=== PATIENT | female | born 1990 | race Caucasian/White ===

== ENCOUNTER 2017-10-22 12:19 | Emergency (ER) | payer MEDICAID, OTHER ==
[2017-10-22 13:30] VITALS: BP 121/74
--- NOTE | 2017-10-22 14:07 | UC ---
Ear Complaint HPI - HPI Summary HPI Summary: 27-year-old female presents with a three-week history of right ear fullness. States approximately one week ago started having some sharp pain in that same year. Reports had a few day history of cold symptoms prior to onset. Denies fever, chills, ear drainage, nasal congestion, sinus pain or pressure, sore throat, chest pain, shortness of breath, or cough. - History of Current Complaint Chief Complaint: UCEar Stated Complaint: RT EAR COMP. Time Seen by Provider: 10/22/17 13:57 Hx Obtained From: Patient Hx Last Menstrual Period: August, HAD UTERINE ABLATION Onset/Duration: Gradual Onset, Lasting Weeks - 3 Severity Initially: Mild Severity Currently: Mild Pain Intensity: 0 Aggravating Factors: Nothing Alleviating Factors: Nothing Associated Signs/Symptoms: Positive: URI Symptoms. Negative: Discharge, Hearing Loss, Foreign Body Sensation, Trauma to Ear - Allergies/Home Medications Allergies/Adverse Reactions: Allergies Allergy/AdvReac Type Severity Reaction Status Date / Time No Known Allergies Allergy Verified 10/22/17 13:21 PMH/Surg Hx/FS Hx/Imm Hx - Additional Past Medical History Additional PMH: Denies significant past medical history - Surgical History Surgical History: Yes Surgery Procedure, Year, and Place: gallbladder, 03/2012. TUBAL LIGATION04/22. UTERINE ABLATION - Family History Known Family History: Positive: Hypertension - Social History Occupation: Unemployed Lives: With Family Alcohol Use: None Substance Use Type: None Smoking Status (MU): Light Every Day Tobacco Smoker Type: Cigarettes Amount Used/How Often: 4 CIGS A DAY Review of Systems Constitutional: Negative Skin: Negative Eyes: Negative ENT: Ear Ache - Right Respiratory: Negative Cardiovascular: Negative Is Patient Immunocompromised?: No All Other Systems Reviewed And Are Negative: Yes Physical Exam Triage Information Reviewed: Yes Appearance: Well-Appearing, No Pain Distress, Obese Vital Signs: Initial Vital Signs Temp 98.7 F 10/22/17 13:23 Pulse 83 10/22/17 13:23 Resp 17 10/22/17 13:23 BP 121/74 10/22/17 13:23 Pulse Ox 100 10/22/17 13:23 Vital Signs Reviewed: Yes Eyes: Positive: Conjunctiva Clear. Negative: Discharge ENT: Positive: Hearing grossly normal, TMs normal, Uvula midline. Negative: Pharyngeal erythema, Nasal congestion, Nasal drainage, Tonsillar swelling, Tonsillar exudate Neck: Positive: Supple, Nontender, No Lymphadenopathy Respiratory: Positive: Lungs clear, Normal breath sounds Cardiovascular: Positive: RRR, No Murmur Neurological: Positive: Alert Skin Exam: Normal Ear Complaint Course/Dx - Course Course Of Treatment: 27 year old female with 3 week history of rigth ear fullness and 1 week of right ear pain that was preceeded by URI symptoms. Exam unremarkable. Likely some eustachian tube dysfunction. Will treat with steroid nasal spray. Patient to follow up with PCP if symptoms persist. - Differential Dx/Diagnosis Differential Diagnosis/HQI/PQRI: Cerumen Impaction, Otitis Externa, Otitis Media Provider Diagnoses: Right eustachian tube dysfunction Discharge - Sign-Out/Discharge Documenting (check all that apply): Patient Departure All imaging exams completed and their final reports reviewed: No Studies - Discharge Plan Condition: Stable Disposition: HOME Prescriptions: Fluticasone NASAL SPRAY 50MCG* [Flonase NASAL SPRAY 50MCG*] 2 spray BOTH NARES DAILY #1 btl Patient Education Materials: Earache (ED) Referrals: No Primary Care Phys,NOPCP [Primary Care Provider] - [facility] [place] [facility]FERR[facility] [Outside] Additional Instructions: Your exam today did not show any signs of an ear infection. I suspect that her symptoms are related to eustachian tube dysfunction. Start using fluticasone nasal spray 2 sprays each nostril once daily for the next 2 weeks. Follow-up with her primary care provider if her symptoms persist. I have given you to contact number for the [facility] Referral service in case you need assistance with establishing care. Seek immediate medical attention if you develop a fever greater than 100.5 F, have worsening ear pain, have any drainage or bleeding from the ear, or any worsening of symptoms. - Billing Disposition and Condition Condition: STABLE Disposition: Home
== END 2017-10-22 14:14 | disposition home or self-care (01) ==
LOC: UCCORT 12:19
DX: H69.91 Unspecified Eustachian tube disorder, right ear (principal); F17.210 Nicotine dependence, cigarettes, uncomplicated
CPT/HCPCS: 99212; G0463

== ENCOUNTER 2018-05-10 12:50 | Emergency (ER) | payer OTHER ==
--- OUTSIDE RECORDS SUMMARY | 2018-05-10 13:01 | XMS REPORT | Continuity of Care Document ---
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 Faby Noble FNP Primary Care Physician Unavailable Payers Date Identification Numbers Payment Provider Subscriber Policy Number: [id number] Graham Lujan PayID: [id number] [facility] [place] [address] Advance Directives Description No Information Available Problems Description No Information Family History Date Family Member(s) Observation Comments Father Seasonal Allergies Father Age is Unknown Mother Diabetes Mellitus II Mother Depression Mother Mental Illness Mother Non Insulin Dependent Diabetes Mother Bipolar Disorder Mother Age is Unknown Social History Type Date Description Comments Sex Unknown Marital Status Lives With Significant Other Lives With Sons Lives With Daughter Sleep Typically sleeps 6 hours a night Sleep Reports difficulty falling asleep Sleep Reports daytime drowsiness Smoke-Free Home is not smoke-free Pets None Work Status Not Currently Working 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 Tobacco Use Start: Unknown End: Former Cigarette Smoker 5-10 Unknown Cigarettes Daily Tobacco Use Start: Unknown Never Smoked Cigars Tobacco Use Start: Unknown Never Smoked A Pipe Smokeless Tobacco Never Used Smokeless Tobacco ETOH Use Moderate Tobacco Use Start: Unknown End: Patient is a former smoker Unknown Recreational Drug Use Never Used Drugs Allergies, Adverse Reactions, Alerts Description No Known Drug Allergies Medications Description No Active Medications Immunizations Description No Information Available Vital Signs Date Vital Result Comment 04/30/2018 2:43pm Weight 270.00 lb Height 67.5 inches 5'7.50" BMI (Body Mass Index) 41.7 kg/m2 BP Systolic 128 mmHg BP Diastolic 84 mmHg Heart Rate 83 /min O2 % BldC Oximetry 98 % Body Temperature 99.3 F Pain Level 4 Results Description No Information Available Procedures Description No Information Available Encounters Description No Information Available Plan of Treatment No Information Available
[2018-05-10 13:11] VITALS: BP 127/80
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
== END 2018-05-10 15:34 | disposition home or self-care (01) ==
LOC: UCCORT 12:50
DX: M25.512 Pain in left shoulder (principal); Z87.891 Personal history of nicotine dependence
CPT/HCPCS: 99211; G0463

== ENCOUNTER 2018-10-22 20:23 | Emergency (ER) | payer OTHER ==
--- OUTSIDE RECORDS SUMMARY | 2018-10-22 20:31 | XMS REPORT | Continuity of Care Document ---
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 Faby Noble FNP Primary Care Physician Unavailable Payers Date Identification Numbers Payment Provider Subscriber Policy Number: [id number] Graham Lujan PayID: [id number] [facility] [place] [address] Family History Date Family Member(s) Observation Comments [...] Drug Allergies Medications Description No Active Medications Vital Signs Date Vital Result Comment 08/29/2018 3:53pm Weight 274.00 lb Height 67.5 inches 5'7.50" BMI (Body Mass Index) 42.3 kg/m2 BP Systolic 106 mmHg BP Diastolic 74 mmHg Heart Rate 78 /min O2 % BldC Oximetry 96 % Body Temperature 97.9 F Pain Level 5 04/30/2018 2:43pm Weight 270.00 lb Height 67.5 inches 5'7.50" BMI (Body Mass Index) 41.7 kg/m2 BP Systolic 128 mmHg BP Diastolic 84 mmHg Heart Rate 83 /min O2 % BldC Oximetry 98 % Body Temperature 99.3 F Pain Level 4 Procedures Date Code Description Status 06/06/2018 71721 Tympanostomy, Gen. Anesth. Completed 06/06/2018 63370 Anesthesia, Tympanotomy Completed 04/30/2018 17520 Tympanometry Completed 04/30/2018 37379 Audiometry, Comprehensive Completed Encounters Type Date Location Provider Dx Diagnosis Office Visit 04/30/2018 Main Office Gerrado Garnica M.D. H69.83 Other specified 2:30p disorders of Eustachian tube, bilateral
[2018-10-22 20:39] VITALS: BP 137/89
--- NOTE | 2018-10-22 20:46 | UC ---
Lower Extremity/Ankle HPI - HPI Summary HPI Summary: 28 yo female s/p injury injury to left ankle toes feel numb getting progressively more painful to bear wt - History of Current Complaint Chief Complaint: UCLowerExtremity Stated Complaint: TOES ON LEFT FOOT INJURY Time Seen by Provider: 10/22/18 20:40 Hx Obtained From: Patient Hx Last Menstrual Period: s/p uterine ablation and tubal ligation Onset/Duration: Gradual Onset Severity Initially: Mild Severity Currently: Mild Pain Intensity: 4 Pain Scale Used: 0-10 Numeric Aggravating Factor(s): Standing, Ambulation Alleviating Factor(s): Rest Able to Bear Weight: Yes Feet (Multiple View): 1 - tender and swollen - Allergies/Home Medications Allergies/Adverse Reactions: Allergies Allergy/AdvReac Type Severity Reaction Status Date / Time No Known Allergies Allergy Verified 10/22/18 20:34 Home Medications: Home Medications Albuterol HFA INHALER* [Ventolin HFA Inhaler*] 1 - 2 puff INH Q4H PRN 10/22/18 [ History Confirmed 10/22/18] PMH/Surg Hx/FS Hx/Imm Hx Previously Healthy: Yes - Surgical History Surgical History: Yes Surgery Procedure, Year, and Place: [place]; [place]olecystectomy, 2012, [place] - Family History Known Family History: Positive: Hypertension, Other - mom with liver Ca - Social History Alcohol Use: None Substance Use Type: None Smoking Status (MU): Former Smoker Type: Cigarettes Amount Used/How Often: 4 CIGS A DAY Have You Smoked in the Last Year: Yes When Did the Patient Quit Smoking/Using Tobacco: 02/2018 Review of Systems All Other Systems Reviewed And Are Negative: Yes Constitutional: Positive: Negative Skin: Positive: Negative Eyes: Positive: Negative ENT: Positive: Negative Respiratory: Positive: Negative Cardiovascular: Positive: Negative Gastrointestinal: Positive: Negative Genitourinary: Positive: Negative Motor: Positive: Negative Neurovascular: Positive: Negative Musculoskeletal: Positive: Arthralgia - lefrt ankle Neurological: Positive: Negative Psychological: Positive: Negative Physical Exam Triage Information Reviewed: Yes Appearance: Well-Appearing, No Pain Distress, Well-Nourished Vital Signs: Initial Vital Signs Temp 98.1 F 10/22/18 20:31 Pulse 90 10/22/18 20:31 Resp 18 10/22/18 20:31 BP 137/89 10/22/18 20:31 Pulse Ox 100 10/22/18 20:31 Vital Signs Reviewed: Yes Eyes: Positive: Conjunctiva Clear ENT: Positive: Hearing grossly normal, Uvula midline. Negative: Nasal congestion, Nasal drainage, Trismus, Muffled voice, Hoarse voice Neck: Positive: Supple, Nontender, No Lymphadenopathy Respiratory: Positive: Lungs clear, Normal breath sounds, No respiratory distress Cardiovascular: Positive: RRR, No Murmur Abdominal Exam: Normal Musculoskeletal: Positive: ROM Intact, No Edema Neurological: Positive: Alert Psychological Exam: Normal Skin Exam: Normal Diagnostics - Radiology No standard instances Radiology Interpretation Completed By: ED Physician Summary of Radiographic Findings: no fx noted Lower Extremity Course/Dx - Differential Dx/Diagnosis Provider Diagnosis: Left ankle sprain Discharge ED - Sign-Out/Discharge Documenting (check all that apply): Patient Departure All imaging exams completed and their final reports reviewed: No - Discharge Plan Condition: Stable Disposition: HOME Patient Education Materials: Ankle Sprain (ED), R.I.C.E. Treatment (ED) Referrals: Faby Noble [Primary Care Provider] - 2 Weeks (if not completely better ) - Billing Disposition and Condition Condition: STABLE Disposition: Home
--- NOTE | 2018-10-23 20:36 | UC ---
- Progress Note Progress Note: Final radiologist reading of left ankle x-rays from October 22, 2018 comes back as soft tissue swelling no fracture. Provider interpretation of the same date is no fracture therefore there is no discrepancy. Course/Dx - Diagnoses Provider Diagnoses: Left ankle sprain Discharge ED - Sign-Out/Discharge Documenting (check all that apply): Patient Departure All imaging exams completed and their final reports reviewed: Yes - Discharge Plan Condition: Stable Disposition: HOME Patient Education Materials: Ankle Sprain (ED), R.I.C.E. Treatment (ED) Referrals: Faby Noble [Primary Care Provider] - 2 Weeks (if not completely better ) - Billing Disposition and Condition Condition: STABLE Disposition: Home
== END 2018-10-22 21:11 | disposition home or self-care (01) ==
LOC: UCCORT 20:23
DX: S93.402A Sprain of unspecified ligament of left ankle, initial encounter (principal); X58.XXXA Exposure to other specified factors, initial encounter; Y93.9 Activity, unspecified; Y92.9 Unspecified place or not applicable; Z87.891 Personal history of nicotine dependence
CPT/HCPCS: 99213; G0463

== ENCOUNTER 2018-11-26 09:11 | Emergency (ER) | payer OTHER ==
--- OUTSIDE RECORDS SUMMARY | 2018-11-26 09:19 | XMS REPORT | Continuity of Care Document ---
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 No Information Available Social History Type Date Description Comments Sex Unknown Tobacco Use Start: Unknown End: Former Cigarette Smoker 1/2 Unknown Pack Daily ETOH Use Drinks Alcoholic Beverages Rarely Tobacco Use Start: Unknown End: Patient is a former smoker Unknown Recreational Drug Use Never Used Drugs Exercise Type/Frequency Exercises sporadically Allergies, Adverse Reactions, Alerts Description No Known Drug Allergies Medications Active Medications SIG Qnty Indications Ordering Provider Date Albuterol Sulfate HFA Inhale Two Puffs Unknown By Mouth Every 4 108(90Base) mcg/Act To 6 Hours as Aerosol Needed Tylenol 2 by mouth every Unknown 325mg Tablets 6 hours as needed pain Loratadine Take One Tablet Unknown 10mg Tablets By Mouth Every Day as needed Immunizations Description No Information Available Vital Signs Date Vital Result Comment 10/24/2018 10:20am Height 67 inches 5'7" Weight 270.00 lb Heart Rate 78 /min BP Systolic Sitting 136 mmHg BP Diastolic Sitting 70 mmHg Respiratory Rate 16 /min Pain Level 5 O2 % BldC Oximetry 98 % BMI (Body Mass Index) 42.3 kg/m2 Results Description No Information Available Procedures Description No Information Available Medical Devices Description No Information Available Encounters Description No Information Available Assessments Date Code Description Provider 10/24/2018 S93.402A Sprain of unspecified ligament of left ankle, Jay Herzog MD initial encounter Plan of Treatment Future Appointment(s):11/06/2018 9:15 am - Jay Herzog MD at [facility] AT Zjxacalu00/19/2019 - Jay Herzog, [id number] Sprain of unspecified ligament of left ankle, initial encounterFollow up:Follow up: 2 weeks Functional Status Description No Information Available Mental Status Description No Information Available Referrals Description No Information Available
--- OUTSIDE RECORDS SUMMARY | 2018-11-26 09:19 | XMS REPORT | Continuity of Care Document ---
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4 kg/m2 10/24/2018 10:20am Height 67 inches 5'7" Weight 270.00 lb Heart Rate 78 /min BP Systolic Sitting 136 mmHg BP Diastolic Sitting 70 mmHg Respiratory Rate 16 /min Pain Level 5 O2 % BldC Oximetry 98 % BMI (Body Mass Index) 42.3 kg/m2 Results Description No Information Available Procedures Description No Information Available Medical Devices Description No Information Available Encounters Type Date Location Provider Dx Diagnosis Office Visit 10/24/2018 [facility] Jay Herzog, S93.402A Sprain of 10:15a at [place] unspecified ligament of left ankle, init encntr Assessments Date Code Description Provider 11/06/2018 S93.402D Sprain of unspecified ligament of left ankle, Jay Herzog MD subsequent encounter 10/24/2018 S93.402A Sprain of unspecified ligament of left ankle, Jay Herzog MD initial encounter Plan of Treatment 11/06/2018 - Jay Herzog, [id number] Sprain of unspecified ligament of left ankle, subsequent encounterComments:home exercises sheetsFollow up:Follow up: As needed Functional Status Description No Information Available Mental Status Description No Information Available Referrals Description No Information Available
[2018-11-26 09:23] VITALS: BP 125/70
--- NOTE | 2018-11-26 09:42 | UC ---
Respiratory Complaint HPI - HPI Summary HPI Summary: cough x 2 days cough is dry , worse with deep breathing + nasal congestion , pnd, sore throat and left ear pain no fever, no chills - History of Current Complaint Chief Complaint: UCGeneralIllness Stated Complaint: COUGH SORE THROAT Time Seen by Provider: 11/26/18 09:36 Hx Obtained From: Patient Hx Last Menstrual Period: tubal/ablation ?: No Onset/Duration: Gradual Onset, Lasting Days - 2, Still Present Timing: Constant Severity Initially: Moderate Severity Currently: Moderate Pain Intensity: 4 Character: Cough: Nonproductive Aggravating Factors: Exertion, Deep Breaths Alleviating Factors: Nothing Associated Signs And Symptoms: Positive: URI, Nasal Congestion. Negative: Fever , Chills, Wheezing, Dizziness, Calf Pain, Calf Swelling, Sinus Discomfort - Allergies/Home Medications Allergies/Adverse Reactions: Allergies Allergy/AdvReac Type Severity Reaction Status Date / Time No Known Allergies Allergy Verified 11/26/18 09:23 PMH/Surg Hx/FS Hx/Imm Hx Respiratory History: Asthma - Surgical History Surgical History: Yes Surgery Procedure, Year, and Place: [place]; Cholecystectomy, 2012, [place] - Family History Known Family History: Positive: Hypertension, Other - mom with liver Ca - Social History Alcohol Use: None Substance Use Type: None Smoking Status (MU): Former Smoker Type: Cigarettes Amount Used/How Often: 4 CIGS A DAY Have You Smoked in the Last Year: Yes When Did the Patient Quit Smoking/Using Tobacco: 02/2018 Review of Systems All Other Systems Reviewed And Are Negative: Yes Constitutional: Positive: Negative Skin: Positive: Negative Eyes: Positive: Negative ENT: Positive: Sore Throat, Ear Ache, Nasal Discharge Respiratory: Positive: Cough Cardiovascular: Positive: Negative Is Patient Immunocompromised?: No Physical Exam Triage Information Reviewed: Yes Appearance: Well-Appearing, No Pain Distress, Obese Vital Signs: Initial Vital Signs Temp 99.3 F 11/26/18 09:19 Pulse 93 11/26/18 09:19 Resp 16 11/26/18 09:19 BP 125/70 11/26/18 09:19 Pulse Ox 99 11/26/18 09:19 Vital Signs Reviewed: Yes Eye Exam: Normal Eyes: Positive: Conjunctiva Clear ENT: Positive: Normal ENT inspection, Hearing grossly normal, Pharynx normal, Nasal congestion Neck: Positive: Supple, Nontender, No Lymphadenopathy Respiratory Exam: Normal Respiratory: Positive: Chest non-tender, Lungs clear, Normal breath sounds Cardiovascular: Positive: RRR, No Murmur Abdominal Exam: Normal Skin Exam: Normal Respiratory Course/Dx - Differential Dx/Diagnosis Provider Diagnosis: URI (upper respiratory infection) Discharge ED - Sign-Out/Discharge Documenting (check all that apply): Patient Departure All imaging exams completed and their final reports reviewed: No Studies - Discharge Plan Condition: Stable Disposition: HOME Prescriptions: Benzonatate CAP* [Tessalon 100 MG CAP*] 100 mg PO TID PRN #21 cap PRN Reason: Cough Patient Education Materials: Upper Respiratory Infection (ED) Referrals: Faby Noble [Primary Care Provider] - If Needed - Billing Disposition and Condition Condition: STABLE Disposition: Home
== END 2018-11-26 09:45 | disposition home or self-care (01) ==
LOC: UCCORT 09:11
DX: J06.9 Acute upper respiratory infection, unspecified (principal); J45.909 Unspecified asthma, uncomplicated; Z87.891 Personal history of nicotine dependence
CPT/HCPCS: 99212; G0463

== ENCOUNTER 2018-12-26 18:20 | Emergency (ER) | payer OTHER ==
[2018-12-26 18:48] VITALS: BP 129/68
--- NOTE | 2018-12-26 19:02 | UC ---
Eye Complaint HPI - HPI Summary HPI Summary: Patient presents to urgent care for evaluation of eye pain and discharge that started yesterday. Patient states she fell initially she had something in her left eye. Patient states they progressively became more red and itchy. Patient states now they feel 's sticky and itchy. Patient states she has had discharge coming out of both eyes was worse on the right. States her eyelids are stuck shut this morning. Patient has any vision changes. Patient does wear glasses normally but states she is at her baseline vision. No sinus congestion or sore throat. Patient somewhat tightness with pinkeye on Sunday. Patient states she is upright and appropriate medications review this visit. - History of Current Complaint Chief Complaint: UCEye Stated Complaint: L EYE CONCERN Time Seen by Provider: 12/26/18 18:46 Hx Obtained From: Patient Hx Last Menstrual Period: uterine ablation, does not have reg periods ?: No Severity Initially: Mild Severity Currently: Mild Pain Intensity: 4 - Allergies/Home Medications Allergies/Adverse Reactions: Allergies Allergy/AdvReac Type Severity Reaction Status Date / Time No Known Allergies Allergy Verified 12/26/18 18:41 Home Medications: Home Medications Acetaminophen TAB* [Tylenol TAB*] 325 mg PO Q4H PRN 12/26/18 [History Confirmed 12/26/18] PMH/Surg Hx/FS Hx/Imm Hx Previously Healthy: Yes - Surgical History Surgical History: Yes Surgery Procedure, Year, and Place: [place]; Cholecystectomy, 2012, [place]. bilateral ear tubes july 2018 - Family History Known Family History: Positive: Hypertension, Other - mom with liver Ca, Non- Contributory - Social History Occupation: Works From/At Home Lives: With Family Alcohol Use: None Substance Use Type: None Smoking Status (MU): Former Smoker Type: Cigarettes Amount Used/How Often: 4 CIGS A DAY Have You Smoked in the Last Year: Yes When Did the Patient Quit Smoking/Using Tobacco: 02/2018 Review of Systems All Other Systems Reviewed And Are Negative: Yes Constitutional: Positive: Negative Skin: Positive: Negative Eyes: Positive: Drainage, Eye Redness, Other - Itching. Negative: Blurred Vision, Diplopia, Photophobia ENT: Positive: Sinus Congestion Respiratory: Positive: Negative Cardiovascular: Positive: Negative Gastrointestinal: Positive: Negative Physical Exam - Summary Physical Exam Summary: Vital Signs Reviewed: Yes A+Ox3, no distress Eyes: JIMMY. EOM intact and full, conjunctiva injected b/l L>R no photophobia, crisp fundoscopic Fluorescee stain b/l after verbal permission. Pt with yellow to gree ENT: Hearing grossly normal TM x 2 clear, turbinates inflammed and boggy, mmoist, uvula midline, no exudate, no erythema Neck: Positive: Supple Respiratory: Positive: No respiratory distress, No accessory muscle use + CTA throughout no w/r Cardiovascular: RRR nl s1, s2 no m/r CBT <2 sec abd soft + BS nt/nd no guarding, no distension Musculoskeletal Exam: DARLING x 4 without difficulty Strength Intact, ROM Intact Neurological: Positive: Alert, + sensation throughout Psychological: Positive: Normal Response To examiner Skin: Positive: no rash, no ecchymosis Triage Information Reviewed: Yes Vital Signs: Initial Vital Signs Temp 98.9 F 12/26/18 18:43 Pulse 97 12/26/18 18:43 Resp 16 12/26/18 18:43 BP 129/68 12/26/18 18:43 Pulse Ox 100 12/26/18 18:43 Eye Complaint Course/Dx - Course Course Of Treatment: Patient presents to urgent care for evaluation of drainage from her bilateral eyes. Patient states her left known the right. Patient initially shows no foreign body but that sensation has mostly improved. Patient has any changes revision or photophobia. Patient states she's had some stickiness to her eyelashes. Some was diagnosed with pinkeye last week. On exam vital signs stable. Visual acuity reviewed. Patient with injected eyes left and right. Patient with thick yellow-green discharge bilaterally. Patient without a photophobia. [place] funduscopic margins. No uptake noted on bilateral fluorescein. Discussed with patient secretion precautions. Prescription for abx eyedrops into the pharmacy. Discussed with patient touching the tip to her alcohol was cleaned if needed. Patient understanding and agreement with plan. Return precautions discussed. - Differential Dx/Diagnosis Provider Diagnosis: Conjunctivitis Discharge ED - Sign-Out/Discharge Documenting (check all that apply): Patient Departure All imaging exams completed and their final reports reviewed: No Studies - Discharge Plan Condition: Stable Disposition: HOME Prescriptions: Polymyx/Trimethoprim OPTH* [Polytrim OPHTH*] 2 drop BOTH EYES Q8HR #1 btl Patient Education Materials: Conjunctivitis (ED) Referrals: Faby Noble [Primary Care Provider] - Additional Instructions: - apply eye drops to affected every 3 times a day for 5 days -okay to alternate ibuprofen (Advil, Motrin) 600mg and tylenol every 3 hours for pain. Take with food - these infections are very contagious - thoroughly wash hands before and after applying eye drops. - wash her bedding, pillows frequently - If eyelids become sticky - use a warm, wet cloth to soften and clean away secretions - wash bed sheets, pillow frequently -contact the medicare contact specialist to schedule a follow-up or if you have any questions or concerns - Billing Disposition and Condition Condition: STABLE Disposition: Home
[2018-12-26] MEDS ORDERED: Fluorescein Sodium TOPICAL* 1 MG TEST STRIP OPHTHALMIC ONE (19:13)
== END 2018-12-26 19:38 | disposition home or self-care (01) ==
LOC: UCCORT 18:20
DX: H10.9 Unspecified conjunctivitis (principal); Z87.891 Personal history of nicotine dependence
CPT/HCPCS: 99212; A9270-GY; G0463

== ENCOUNTER 2019-10-15 10:59 | Inpatient (IN) ==
[~2019-10-15 10:59] MED LIST: Buffered Lidocaine 1% SYRIN 1 ml INTRADERM ONE; Dexamethasone IV 4 MG/ML VIAL 1 ml VIAL IV SLOW PU ONE; Famotidine IV 10 MG/ML 2 ml VIAL (20 mg) IV ONE; Lactated Ringers 1000 ml BAG 1,000 ML IV SCH
[2019-10-15] MEDS ORDERED: Heparin 5000 UNITS/ML 1 mL VIAL ONE (11:43)
[2019-10-15] MEDS ORDERED: Dexamethasone IV 4 MG/ML VIAL 1 ml VIAL ONE (11:44)
[2019-10-15] MEDS ORDERED: Famotidine IV 10 MG/ML 2 ml VIAL (20 mg) ONE (11:44)
[2019-10-15] MEDS ORDERED: ceFAZolin 1 GM ADVAN 1 GM ADDV.VIAL IVPB ONE (11:44)
[2019-10-15] MEDS ORDERED: ceFAZolin 2 GM PREMIX 2 GM/50 ML BAG ONE (11:44)
[2019-10-15] MEDS ORDERED: Ondansetron 4 mg VIAL 2 MG/ML 2 ml VIAL IV PRN ×3 (14:09→17:05)
[2019-10-15] MEDS ORDERED: Naloxone 0.4 mg VIAL 0.4 mg/ml 1 ml VIAL IV PRN ×2 (14:09→16:38)
[2019-10-15] MEDS ORDERED: DiMENhydriNATE IV 50 mg/ml 1 ml VIAL IV PUSH PRN (14:09)
[2019-10-15] MEDS ORDERED: Lidocaine 2% PF 5 ML VIAL ONE (14:14)
[2019-10-15] MEDS ORDERED: fentaNYL 250 mcg/5 ml 50 MCG/ML 5 ml VIAL (250 MCG) ONE (14:14)
[2019-10-15] MEDS ORDERED: Propofol 10 MG/ML 20 ML BTL ONE (14:14)
[2019-10-15] MEDS ORDERED: Midazolam 2 mg/2 ml VIAL 1 mg/ml 2 ml VIAL (2 mg) ONE (14:15)
[2019-10-15] MEDS ORDERED: Rocuronium 50 mg VIAL 10 mg/ml 5 ml VIAL (50 mg) ONE ×2 (14:15→15:44)
[2019-10-15] MEDS ORDERED: Bupivacaine 0.25% SDV 30 ML ONE (14:22)
[2019-10-15] MEDS ORDERED: Methylene Blue 0.5 % 50 MG/10 ML AMP IV ONE (14:49)
[2019-10-15] MEDS ORDERED: fentaNYL 100 mcg/2 ml 50 MCG/ML VIAL ONE ×2 (15:14→17:10)
[2019-10-15] MEDS ORDERED: Acetaminophen IV 1 GM/100ML 100 ML ONE (15:43)
[2019-10-15] MEDS ORDERED: fentaNYL 100 mcg/2 ml 50 MCG/ML VIAL IV PRN (16:38)
[2019-10-15] MEDS ORDERED: HYDROmorphone 1 MG/1 ML SYRINGE IV PRN (16:38)
[2019-10-15] MEDS ORDERED: Ondansetron 4 mg VIAL 2 MG/ML 2 ml VIAL ONE ×2 (16:45→17:01)
[2019-10-15] MEDS ORDERED: Sugammadex 500 MG/5 ML 5 ml VIAL IV PUSH ONE (16:49)
[2019-10-15] MEDS ORDERED: HYDROcodone/ACET. 7.5/325 LIQ 15 ML UDC PO PRN (17:05)
[2019-10-15] MEDS ORDERED: diPHENhydraMINE IV 50 MG/ML 1 ml VIAL (BENADRYL) SLOW PUSH PRN (17:05)
[2019-10-15] MEDS: fentaNYL 100 mcg/2 ml 50 MCG/ML VIAL IV PRN ×2 (17:10→17:20)
[2019-10-15] MEDS ORDERED: HYDROmorphone 0.5 MG/0.5 ML SYRINGE IV SLOW PU PRN (17:11)
[2019-10-15] MEDS ORDERED: HYDROmorphone 1 MG/1 ML SYRINGE IV SLOW PU PRN (17:11)
[2019-10-15] MEDS: Lactated Ringers 1000 ml BAG 1,000 ML IV SCH (18:26)
[2019-10-15] MEDS: Famotidine IV 10 MG/ML 2 ml VIAL (20 mg) IV SLOW PU SCH (21:59)
[2019-10-15] MEDS: Heparin 5000 UNITS/ML 1 mL VIAL SUBCUT SCH (22:04)
[2019-10-15] MEDS: Nystatin TOP POWDER 15 GM BTL TOPICAL SCH (22:15)
[2019-10-16] MEDS: Lactated Ringers 1000 ml BAG 1,000 ML IV SCH ×3 (00:34→13:55)
[2019-10-16] MEDS: Heparin 5000 UNITS/ML 1 mL VIAL SUBCUT SCH ×3 (06:18→22:18)
[2019-10-16] MEDS: Famotidine IV 10 MG/ML 2 ml VIAL (20 mg) IV SLOW PU SCH ×2 (08:14→22:17)
[2019-10-16] MEDS: Nystatin TOP POWDER 15 GM BTL TOPICAL SCH ×3 (08:14→22:20)
[2019-10-16] MEDS ORDERED: Influenza VAC *QUAD* 2020-21* 0.5 ML SYRINGE IM ONE (13:00)
[2019-10-16] MEDS: D5W 1/2 NS KCl 20 meq 1000 ml 1,000 ML IV SCH (18:07)
[2019-10-17] MEDS: D5W 1/2 NS KCl 20 meq 1000 ml 1,000 ML IV SCH (02:06)
[2019-10-17] MEDS: Heparin 5000 UNITS/ML 1 mL VIAL SUBCUT SCH (06:18)
[2019-10-17 08:50] VITALS: BP 116/67
[2019-10-17] MEDS: Nystatin TOP POWDER 15 GM BTL TOPICAL SCH (09:23)
[2019-10-17] MEDS: Famotidine IV 10 MG/ML 2 ml VIAL (20 mg) IV SLOW PU SCH (09:24)
== END 2019-10-17 11:48 | disposition home or self-care (01) | DRG 403 ==
LOC: AA 10:59 → SSU 17:05
PROVIDERS: ADMIT Surgery; ATTEND Surgery